=== PATIENT | female | born 1995 | race Two or more races ===

== ENCOUNTER 2017-03-12 13:38 | Inpatient (IN) | payer OTHER ==
[2017-03-12 14:06] VITALS: BMI 32.5
[2017-03-12] MEDS ORDERED: DIPHTH,PERTUSS(ACELL),TET 0.5 ML DISP.SYRIN IM ONE (14:26)
[2017-03-12] MEDS ORDERED: SODIUM CHLORIDE 1,000 ML IV STA (14:27)
--- NOTE | 2017-03-12 14:35 | PDOC ---
History of Present Illness <Piero Beltre - Last Filed: 03/12/17 18:05> - General History Source: Patient Exam Limitations: No Limitations - History of Present Illness Initial Comments: 03/12/17 14:30 21-year-old female presents to the ED with complaints of right foot redness swelling and pain since yesterday. 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 Patient states chills and states is up-to-date on vaccinations but unsure of last tetanus. Patient denies history of immunosuppression including diabetes Timing/Duration: getting worse Associated Symptoms: reports: fever/chills <Mariangel Preciado - Last Filed: 03/12/17 19:01> - General Chief Complaint: Puncture Wound Stated Complaint: LT FOOT PAIN Time Seen by Provider: 03/12/17 14:03 Past History <Piero Beltre - Last Filed: 03/12/17 18:05> - Travel Traveled outside of the country in the last 30 days: No - Past Medical History CVA: No COPD: No DVT: No Dementia: No - Reproductive History LMP Normal: Yes Is Patient Now?: No - Immunization History Immunization Up to Date: Yes - Suicide/Smoking/Psychosocial Hx Smoking History: Never smoked Have you smoked in the past 12 months: No Information on smoking cessation initiated: No Drug/Substance Use Hx: Yes (Marijuana) Substance Use Type: None Patient Lives Alone: No Lives with/in: parents <Mariangel Preciado - Last Filed: 03/12/17 19:01> - Past Medical History Allergies/Adverse Reactions: Allergies Allergy/AdvReac Type Severity Reaction Status Date / Time No Known Allergies Allergy Verified 03/12/17 14:00 Home Medications: Ambulatory Orders NK [No Known Home Medication] 03/12/17 Review of Systems - Review of Systems Able to Perform ROS?: No Constitutional: Yes: Chills Musculoskeletal: Yes: Muscle Pain (rt foot) Integumentary: Yes: Bruising, Erythema, Lumps Endocrine: No: Symptoms Reported <Mariangel Preciado - Last Filed: 03/12/17 19:01> *Physical Exam - Vital Signs Last Vital Signs Temp Pulse Resp BP Pulse Ox 99.5 F 98 H 16 113/66 97 03/12/17 14:02 03/12/17 14:02 03/12/17 14:02 03/12/17 14:02 03/12/17 14:02 <Piero Beltre - Last Filed: 03/12/17 18:05> - Vital Signs Last Vital Signs Temp Pulse Resp BP Pulse Ox 99.5 F 98 H 16 113/66 97 03/12/17 14:02 03/12/17 14:02 03/12/17 14:02 03/12/17 14:02 03/12/17 14:02 - Physical Exam General Appearance: Yes: Nourished, Appropriately Dressed. No: Apparent Distress HEENT: positive: EOMI. negative: Pale Conjunctivae Vascular Pulses: Dorsalis-Pedis (R): 2+ Extremity: positive: Normal Capillary Refill, Normal Range of Motion, Tender ( to sole of rt foot. Noted raised 1 cm circular hematoma to center of erythema. Area warm to touch and with noted streaking to the medial aspect of rt sole) Integumentary: positive: Erythema, Swelling Neurologic: positive: Motor Strength 5/5 (ambulatory with limp) <Mariangel Preciado - Last Filed: 03/12/17 19:01> ED Treatment Course - LABORATORY CBC & Chemistry Diagram: 03/12/17 15:23 03/12/17 15:23 - ADDITIONAL ORDERS Additional order review: Laboratory Results 03/12/17 03/12/17 03/12/17 15:23 15:23 15:23 PT with INR INR Sodium 137 Potassium 4.0 Chloride 103 Carbon Dioxide 28 Anion Gap 6 L BUN 10 Creatinine 0.9 Creat Clearance w eGFR > 60 Random Glucose 67 L Lactic Acid 2.0 Calcium 8.9 Total Bilirubin 0.6 AST 17 ALT 23 Alkaline Phosphatase 89 Total Protein 7.9 Albumin 3.8 Urine Color Urine Appearance Urine pH Ur Specific [place] Urine Protein Urine Glucose (UA) Urine Ketones Urine Blood Urine Nitrite Urine Bilirubin Urine Urobilinogen Urine WBC (Auto) Urine RBC (Auto) Ur Epithelial Cells Urine HCG, Qual Negative 03/12/17 03/12/17 15:23 15:23 PT with INR 14.20 H INR 1.26 H Sodium Potassium Chloride Carbon Dioxide Anion Gap BUN Creatinine Creat Clearance w eGFR Random Glucose Lactic Acid Calcium Total Bilirubin AST ALT Alkaline Phosphatase Total Protein Albumin Urine Color Haylee Urine Appearance Slcloudy Urine pH 5.0 Ur Specific [place] 1.021 Urine Protein 1+ H Urine Glucose (UA) Negative Urine Ketones 1+ H Urine Blood 3+ H Urine Nitrite Positive Urine Bilirubin Negative Urine Urobilinogen Negative Urine WBC (Auto) 33 Urine RBC (Auto) 12 Ur Epithelial Cells Rare Urine HCG, Qual 03/12/17 15:23 RBC 4.28 MCV 91.1 MCHC 32.9 RDW 13.3 MPV 9.2 Neutrophils % 79.6 Lymphocytes % 10.9 Monocytes % 9.2 Eosinophils % 0.1 Basophils % 0.2 - Medications Given in the ED: ED Medications Discontinued Medications Generic Name Dose Route Start Last Admin Trade Name Freq PRN Reason Stop Dose Admin Diphtheria/Tetanus/Acell Pertussis 0.5 ml 03/12/17 14:26 03/12/17 16:12 Boostrix - IM 03/12/17 14:27 0.5 ml .ONCE ONE Administration Sodium Chloride 1,000 mls @ 1,000 mls/hr 03/12/17 14:27 03/12/17 16:12 Normal Saline - IV 03/12/17 15:26 1,000 mls/hr ASDIR STA Administration <Piero Beltre - Last Filed: 03/12/17 18:05> - LABORATORY CBC & Chemistry Diagram: 03/12/17 15:23 03/12/17 15:23 - RADIOLOGY Radiology Studies Ordered: Category Date Time Status CHEST X-RAY PORTABLE* [RAD] Stat Radiology 03/12/17 14:27 Ordered FOOT-RIGHT [RAD] Stat Radiology 03/12/17 14:26 Ordered <Mariangel Preciado - Last Filed: 03/12/17 19:01> Medical Decision Making - Medical Decision Making 03/12/17 14:36 Pt with tender hematoma of unknown source to sole of right foot since yesterday. Pt with noted elevated hr, low grade temp, edema, erythema, and clinical suspicious for sepsis. Pt had streaking to the medial aspect of sole extending to base of malleolus Xray and tdap ordered along with septic w/u. 03/12/17 14:43 Patient will go to the main ED for further management <Mariangel Preciado - Last Filed: 03/12/17 19:01> *DC/Admit/Observation/Transfer <Piero Beltre - Last Filed: 03/12/17 18:05> <Mariangel Preciado - Last Filed: 03/12/17 19:01> Diagnosis at time of Disposition: Cellulitis
[2017-03-12 15:42] LABS: BASO % 0.2 % (0-2.0); EOS % 0.1 % (0-4.5); HEMATOCRIT 38.9 % (32.4-45.2); HEMOGLOBIN 12.8 GM/dL (10.7-15.3); LYMPH % 10.9 % (8-40); MCHC 32.9 g/dl (32.0-36.0); MEAN CELL VOLUME 91.1 fl (80-96); MEAN PLT VOLUME 9.2 fl (7.5-11.1); MONO % 9.2 % (3.8-10.2); NEUT % 79.6 % (42.8-82.8); PLATELET COUNT 238 K/MM3 (134-434); RBC 4.28 M/mm3 (3.60-5.2); RDW 13.3 % (11.6-15.6); WHITE BLOOD COUNT 11.2 K/mm3 (4.0-10.0)
[2017-03-12 15:48] LABS: URINE APPEARANCE SLCLOUDY; URINE BILIRUBIN NEGATIVE (NEGATIVE); URINE BLOOD 3+ (NEGATIVE); URINE COLOR AMBER; URINE GLUCOSE (UA) NEGATIVE (NEGATIVE); URINE KETONE 1+ (NEGATIVE); URINE NITRITE POSITIVE (NEGATIVE); URINE UROBILINOGEN NEGATIVE mg/dL (0.2-1.0)
[2017-03-12 15:51] LABS: URINE LEUK ESTERASE 1+ (NEGATIVE); URINE PROTEIN 1+ (NEGATIVE)
[2017-03-12 15:57] LABS: EPI CELLS RARE /HPF (FEW)
[2017-03-12 16:03] LABS: INR 1.26 (0.82-1.09); PROTHROMBIN TIME (PATIENT) 14.2 SEC (9.98-11.88)
[2017-03-12 16:11] LABS: ALBUMIN 3.8 g/dl (3.4-5.0); ANION GAP 6 (8-16); BILIRUBIN,TOTAL 0.6 mg/dL (0.2-1.0); BLOOD UREA NITROGEN 10 mg/dL (7-18); CALCIUM 8.9 mg/dL (8.5-10.1); CHLORIDE 103 mmol/L (98-107); CO2 28 mmol/L (21-32); CREATININE 0.9 mg/dL (0.55-1.02); GLUCOSE,RANDOM 67 mg/dL (74-106); SGOT/AST 17 U/L (15-37); SGPT/ALT 23 U/L (12-78); SODIUM 137 mmol/L (136-145); TOT PROT 7.9 g/dl (6.4-8.2)
[2017-03-12 16:12] LABS: ALK PHOS 89 U/L (45-117)
[2017-03-12] MEDS ORDERED: PIPERACILLIN/TAZOB 3.375 GM/50 ML PRE-DOCKED IVPB ONE (18:18)
--- NOTE | 2017-03-12 18:18 | PDOC ---
*Physical Exam - Vital Signs Last Vital Signs Temp Pulse Resp BP Pulse Ox 99.5 F 98 H 16 113/66 97 03/12/17 14:02 03/12/17 14:02 03/12/17 14:02 03/12/17 14:02 03/12/17 14:02 <Piero Beltre - Last Filed: 03/12/17 19:16> - Vital Signs Last Vital Signs Temp Pulse Resp BP Pulse Ox 100.0 F H 86 20 119/76 100 03/12/17 19:12 03/12/17 19:12 03/12/17 19:12 03/12/17 19:12 03/12/17 19:12 - Physical Exam Comments: 03/12/17 20:56 Vitals: Triage vital signs reviewed. General Appearance: No acute distress, well nourished, well developed. Head: Atraumatic, normocephalic. Eyes: Pupils equal round reactive, extraocular movement intact. Neck: Supple. No nuchal rigidity. Chest Wall: Nontender. Cardiac: Regular rate and rhythm. No murmurs, no rubs, no gallops. Lungs: Clear to auscultation bilaterally, good air movement bilaterally. Extremities: Base of right foot, 10 cm x 10 cm cellulitis of the medial aspect of the foot extending to the medial malleolus with lymphangitic spread. At the center of the cellulitis, there is a small hematoma which appears to be the nidus of infection. No fluctuance or evidence of abscess, neurovascularly intact. Full range of motion to all extremities, no cyanosis, no clubbing. Skin: Warm and dry, no rashes or lesions, no petechiae. Neuro: AOX3; Cranial Nerves 2-12 grossly intact. Strength intact to all extremities. Sensation intact to all extremities. Psych: Normal mood, normal affect. <Evy Aponte - Last Filed: 03/12/17 20:57> ED Treatment Course - LABORATORY CBC & Chemistry Diagram: 03/12/17 15:23 03/12/17 15:23 - ADDITIONAL ORDERS Additional order review: Laboratory Results 03/12/17 03/12/17 03/12/17 15:23 15:23 15:23 PT with INR INR Sodium 137 Potassium 4.0 Chloride 103 Carbon Dioxide 28 Anion Gap 6 L BUN 10 Creatinine 0.9 Creat Clearance w eGFR > 60 Random Glucose 67 L Lactic Acid 2.0 Calcium 8.9 Total Bilirubin 0.6 AST 17 ALT 23 Alkaline Phosphatase 89 Total Protein 7.9 Albumin 3.8 Urine Color Urine Appearance Urine pH Ur Specific [place] Urine Protein Urine Glucose (UA) Urine Ketones Urine Blood Urine Nitrite Urine Bilirubin Urine Urobilinogen Urine WBC (Auto) Urine RBC (Auto) Ur Epithelial Cells Urine HCG, Qual Negative 03/12/17 03/12/17 15:23 15:23 PT with INR 14.20 H INR 1.26 H Sodium Potassium Chloride Carbon Dioxide Anion Gap BUN Creatinine Creat Clearance w eGFR Random Glucose Lactic Acid Calcium Total Bilirubin AST ALT Alkaline Phosphatase Total Protein Albumin Urine Color Haylee Urine Appearance Slcloudy Urine pH 5.0 Ur Specific [place] 1.021 Urine Protein 1+ H Urine Glucose (UA) Negative Urine Ketones 1+ H Urine Blood 3+ H Urine Nitrite Positive Urine Bilirubin Negative Urine Urobilinogen Negative Urine WBC (Auto) 33 Urine RBC (Auto) 12 Ur Epithelial Cells Rare Urine HCG, Qual 03/12/17 15:23 RBC 4.28 MCV 91.1 MCHC 32.9 RDW 13.3 MPV 9.2 Neutrophils % 79.6 Lymphocytes % 10.9 Monocytes % 9.2 Eosinophils % 0.1 Basophils % 0.2 - Medications Given in the ED: ED Medications Discontinued Medications Generic Name Dose Route Start Last Admin Trade Name [place] PRN Reason Stop Dose Admin Diphtheria/Tetanus/Acell Pertussis 0.5 ml 03/12/17 14:26 03/12/17 16:12 Boostrix - IM 03/12/17 14:27 0.5 ml .ONCE ONE Administration Sodium Chloride 1,000 mls @ 1,000 mls/hr 03/12/17 14:27 03/12/17 16:12 Normal Saline - IV 03/12/17 15:26 1,000 mls/hr ASDIR STA Administration <Piero Beltre - Last Filed: 03/12/17 19:16> - LABORATORY CBC & Chemistry Diagram: 03/12/17 15:23 03/12/17 15:23 - ADDITIONAL ORDERS Additional order review: Laboratory Results 03/12/17 03/12/17 03/12/17 15:23 15:23 15:23 PT with INR INR Sodium 137 Potassium 4.0 Chloride 103 Carbon Dioxide 28 Anion Gap 6 L BUN 10 Creatinine 0.9 Creat Clearance w eGFR > 60 Random Glucose 67 L Lactic Acid 2.0 Calcium 8.9 Total Bilirubin 0.6 AST 17 ALT 23 Alkaline Phosphatase 89 Total Protein 7.9 Albumin 3.8 Urine Color Urine Appearance Urine pH Ur Specific [place] Urine Protein Urine Glucose (UA) Urine Ketones Urine Blood Urine Nitrite Urine Bilirubin Urine Urobilinogen Urine WBC (Auto) Urine RBC (Auto) Ur Epithelial Cells Urine HCG, Qual Negative 03/12/17 03/12/17 15:23 15:23 PT with INR 14.20 H INR 1.26 H Sodium Potassium Chloride Carbon Dioxide Anion Gap BUN Creatinine Creat Clearance w eGFR Random Glucose Lactic Acid Calcium Total Bilirubin AST ALT Alkaline Phosphatase Total Protein Albumin Urine Color Haylee Urine Appearance Slcloudy Urine pH 5.0 Ur Specific [place] 1.021 Urine Protein 1+ H Urine Glucose (UA) Negative Urine Ketones 1+ H Urine Blood 3+ H Urine Nitrite Positive Urine Bilirubin Negative Urine Urobilinogen Negative Urine WBC (Auto) 33 Urine RBC (Auto) 12 Ur Epithelial Cells Rare Urine HCG, Qual 03/12/17 15:23 RBC 4.28 MCV 91.1 MCHC 32.9 RDW 13.3 MPV 9.2 Neutrophils % 79.6 Lymphocytes % 10.9 Monocytes % 9.2 Eosinophils % 0.1 Basophils % 0.2 - Medications Given in the ED: ED Medications Discontinued Medications Generic Name Dose Route Start Last Admin Trade Name Freq PRN Reason Stop Dose Admin Acetaminophen 1,000 mg 03/12/17 18:43 03/12/17 19:09 Tylenol - PO 03/12/17 18:44 975 mg ONCE ONE Administration Diphtheria/Tetanus/Acell Pertussis 0.5 ml 03/12/17 14:26 03/12/17 16:12 Boostrix - IM 03/12/17 14:27 0.5 ml .ONCE ONE Administration Sodium Chloride 1,000 mls @ 1,000 mls/hr 03/12/17 14:27 03/12/17 16:12 Normal Saline - IV 03/12/17 15:26 1,000 mls/hr ASDIR STA Administration Piperacillin Sod/Tazobactam Sod 3.375 gm 03/12/17 18:18 03/12/17 18:42 Zosyn 3.375gm Ivpb (Pre-Docked) IVPB 03/12/17 18:19 3.375 gm NOW ONE Administration Protocol <Evy Aponte - Last Filed: 03/12/17 20:57> Progress Note - Progress Note Progress Note: The patient is a 21 year old female, with no significant past medical history, who presents to the emergency department with right foot swelling, redness and pain since yesterday. The patient reports that the pain began as discomfort and has progressed with increased swelling and redness since last night, prompting her to come to the ED for evaluation. The patient reports that it has been difficulty to ambulate since last night secondary to the pain. The patient does not specifically remember stepping on anything but reports that she works at [employer] and could have easily stepped on something at work without noticing. The patient denies fever, chills, nausea or vomiting. Allergies: None reported. Past Surgical History: None reported. Social History: Non-smoker. Denies alcohol or drug use. <Evy Aponte - Last Filed: 03/12/17 20:57> Medical Decision Making - Medical Decision Making 03/12/17 18:17 Questionable puncture wound with cellulitis and lymphangitic spread. We'll treat with Cefazolin and and observe overnight for further management. <Piero Beltre - Last Filed: 03/12/17 19:16> *DC/Admit/Observation/Transfer - Discharge Dispostion Admit: Yes <Piero Beltre - Last Filed: 03/12/17 19:16> - Attestations Scribe Attestion: 03/12/17 19:49 Documentation prepared by Evy Aponte, acting as registered medical assistant for Piero Beltre MD. <Evy Aponte - Last Filed: 03/12/17 20:57> Diagnosis at time of Disposition: Cellulitis Qualifiers: Site of cellulitis: other site Qualified Code(s): L03.818 - Cellulitis of other sites
[2017-03-12] MEDS ORDERED: PIPERACILLIN/TAZOB 3.375 GM 3.375 GM/50 ML BAG IVPB ONE (18:27)
[2017-03-12] MEDS ORDERED: ACETAMINOPHEN 500 MG TABLET (FP) PO ONE (18:43)
[2017-03-12] MEDS ORDERED: ACETAMINOPHEN 325 MG TABLET (FP) ONE (19:02)
[2017-03-12] MEDS ORDERED: IBUPROFEN 400 MG TABLET (FP) PO PRN (20:08)
--- NOTE | 2017-03-12 20:24 | HP ---
CHIEF COMPLAINT: Right Foot Pain, Swelling and Redness PCP: HISTORY OF PRESENT ILLNESS: This is a 21 y/o young woman with no past medical history. Who presents to the ED with pain, swelling and redness to her R- foot x 1 day. Patient reports while working at [employer], she felt a discomforting sensation to her right mid plantar, but kept working. She reports being able to ambulate, then noticed while at home after resting her foot was swollen, red and she was unable to bear weight. This am she reports the swelling, redness and pain was worse. Patient denies fever, chills, cough, SOB, CP, AP, N/V/D, constipation. ER course was notable for: (1) WBC 11.2 (2) UA- UTI +Nitrate, +3 Blood, +1 protein, 33 WBC (3) T Max 100.0 Recent Travel: None PAST MEDICAL HISTORY: None PAST SURGICAL HISTORY: None Social History: Smoking: None Alcohol: None Drugs: None Lives with family, employed at [employer] Family History: Non-Contributory Allergies No Known Allergies Allergy (Verified 03/12/17 14:00) HOME MEDICATIONS: Home Medications Medication Instructions Recorded NK [No Known Home Medication] 03/12/17 REVIEW OF SYSTEMS CONSTITUTIONAL: Absent: fever, chills, diaphoresis, generalized weakness, malaise, loss of appetite, weight change HEENT: Absent: rhinorrhea, nasal congestion, throat pain, throat swelling, difficulty swallowing, mouth swelling, ear pain, eye pain, visual changes CARDIOVASCULAR: Absent: chest pain, syncope, palpitations, irregular heart rate, lightheadedness , peripheral edema RESPIRATORY: Absent: cough, shortness of breath, dyspnea with exertion, orthopnea, wheezing, stridor, hemoptysis GASTROINTESTINAL: Absent: abdominal pain, abdominal distension, nausea, vomiting, diarrhea, constipation, melena, hematochezia GENITOURINARY: Absent: dysuria, frequency, urgency, hesitancy, hematuria, flank pain, genital pain MUSCULOSKELETAL: right foot pain and swelling Absent: myalgia, arthralgia, joint swelling, back pain, neck pain SKIN: redness to right foot Absent: rash, itching, pallor HEMATOLOGIC/IMMUNOLOGIC: Absent: easy bleeding, easy bruising, lymphadenopathy, frequent infections ENDOCRINE: Absent: unexplained weight gain, unexplained weight loss, heat intolerance, cold intolerance NEUROLOGIC: Absent: headache, focal weakness or paresthesias, dizziness, unsteady gait, seizure, mental status changes, bladder or bowel incontinence PSYCHIATRIC: Absent: anxiety, depression, suicidal or homicidal ideation, hallucinations. PHYSICAL EXAMINATION Vital Signs - 24 hr 03/12/17 03/12/17 14:02 19:12 Temperature 99.5 F 100.0 F H Pulse Rate 98 H Pulse Rate [ 86 Radial] Respiratory 16 20 Rate Blood Pressure 113/66 Blood Pressure 119/76 [Left Arm] O2 Sat by Pulse 97 100 Oximetry (%) GENERAL: Awake, alert, and fully oriented, in no acute distress. HEAD: Normal with no signs of trauma. EYES: Pupils equal, round and reactive to light, extraocular movements intact, sclera anicteric, conjunctiva clear. No lid lag. EARS, NOSE, THROAT: Ears normal, nares patent, oropharynx clear without exudates. Moist mucous membranes. NECK: Normal range of motion, supple without lymphadenopathy, JVD, or masses. LUNGS: Breath sounds equal, clear to auscultation bilaterally. No wheezes, and no crackles. No accessory muscle use. HEART: Regular rate and rhythm, normal S1 and S2 without murmur, rub or gallop. ABDOMEN: Soft, nontender, not distended, normoactive bowel sounds, no guarding, no rebound, no masses. No hepatomegaly or splenomegaly. MUSCULOSKELETAL: Normal range of motion at all joints. No bony deformities or tenderness. No CVA tenderness. UPPER EXTREMITIES: 2+ pulses, warm, well-perfused. No cyanosis. No clubbing. No peripheral edema. LOWER EXTREMITIES: 2+ pulses, warm, well-perfused. No calf tenderness. No peripheral edema. NEUROLOGICAL: Cranial nerves II-XII intact. Normal speech. Gait not observed. PSYCHIATRIC: Cooperative. Good eye contact. Appropriate mood and affect. SKIN: +hematoma mid plantar, erythema, induration mid plantar to right heel. Warm, dry, normal turgor, normal capillary refill. Laboratory Results - last 24 hr 03/12/17 03/12/17 03/12/17 15:23 15:23 15:23 WBC 11.2 H RBC 4.28 Hgb 12.8 Hct 38.9 MCV 91.1 MCH 30.0 MCHC 32.9 RDW 13.3 Plt Count 238 MPV 9.2 Neutrophils % 79.6 Lymphocytes % 10.9 Monocytes % 9.2 Eosinophils % 0.1 Basophils % 0.2 PT with INR 14.20 H INR 1.26 H Sodium Potassium Chloride Carbon Dioxide Anion Gap BUN Creatinine Creat Clearance w eGFR Random Glucose Lactic Acid Calcium Total Bilirubin AST ALT Alkaline Phosphatase Total Protein Albumin Urine Color Haylee Urine Appearance Slcloudy Urine pH 5.0 Ur Specific [place] 1.021 Urine Protein 1+ H Urine Glucose (UA) Negative Urine Ketones 1+ H Urine Blood 3+ H Urine Nitrite Positive Urine Bilirubin Negative Urine Urobilinogen Negative Urine WBC (Auto) 33 Urine RBC (Auto) 12 Ur Epithelial Cells Rare Urine HCG, Qual 03/12/17 03/12/17 03/12/17 15:23 15:23 15:23 WBC RBC Hgb Hct MCV MCH MCHC RDW Plt Count MPV Neutrophils % Lymphocytes % Monocytes % Eosinophils % Basophils % PT with INR INR Sodium 137 Potassium 4.0 Chloride 103 Carbon Dioxide 28 Anion Gap 6 L BUN 10 Creatinine 0.9 Creat Clearance w eGFR > 60 Random Glucose 67 L Lactic Acid 2.0 Calcium 8.9 Total Bilirubin 0.6 AST 17 ALT 23 Alkaline Phosphatase 89 Total Protein 7.9 Albumin 3.8 Urine Color Urine Appearance Urine pH Ur Specific [place] Urine Protein Urine Glucose (UA) Urine Ketones Urine Blood Urine Nitrite Urine Bilirubin Urine Urobilinogen Urine WBC (Auto) Urine RBC (Auto) Ur Epithelial Cells Urine HCG, Qual Negative ASSESSMENT/PLAN: This is a 21 y/o young woman with no PMHx. Placed in Observation for Cellulitis of the Right Foot, UTI. Problem List - Problem (1) Cellulitis Assessment/Plan: - Likely secondary to a puncture wound - Blood Cultures-pending - +Leukocytosis - Zosyn given in ED, will continue - Motrin prn - Appreciate ID Consult - Monitor CBC - Elevate extremity - Monitor vitals Code(s): L03.90 - CELLULITIS, UNSPECIFIED Qualifiers: Site of cellulitis: other site Qualified Code(s): L03.818 - Cellulitis of other sites (2) UTI (urinary tract infection) Assessment/Plan: - UA- +nitrate, +1 protein, +3 blood - Urine Culture- pending - Patient is current asymptomatic, currently on Zosyn for Cellulitis - Monitor vitals Code(s): N39.0 - URINARY TRACT INFECTION, SITE NOT SPECIFIED (3) DVT prophylaxis Assessment/Plan: - OOB Code(s): [id number] - Visit type - Emergency Visit Emergency Visit: Yes ED Registration Date: 03/12/17 Care time: The patient presented to the Emergency Department on the above date and was hospitalized for further evaluation of their emergent condition. - New Patient This patient is new to me today: Yes Date on this admission: 03/12/17 - Critical Care Critical Care patient: No
[2017-03-13] MEDS ORDERED: PIPERACILLIN/TAZOB 3.375 GM 3.375 GM in DEXTROSE 5%-WATER - 100 ML IVPB ONE (02:00)
[2017-03-13] MEDS ORDERED: PIPERACIL/TAZOB 3.375 GM 3.375 GM/50 ML PREMIX IVPB SCH (02:00)
[2017-03-13 08:14] LABS: BASO % 0.2 % (0-2.0); HEMATOCRIT 34.9 % (32.4-45.2); HEMOGLOBIN 11.4 GM/dL (10.7-15.3); LYMPH % 29.2 % (8-40); MCH 30.2 pg (25.7-33.7); MCHC 32.7 g/dl (32.0-36.0); MEAN CELL VOLUME 92.3 fl (80-96); MEAN PLT VOLUME 9.1 fl (7.5-11.1); MONO % 13.8 % (3.8-10.2); NEUT % 55.8 % (42.8-82.8); PLATELET COUNT 187 K/MM3 (134-434); RBC 3.78 M/mm3 (3.60-5.2); RDW 13.4 % (11.6-15.6); WHITE BLOOD COUNT 6.4 K/mm3 (4.0-10.0)
[2017-03-13] MEDS ORDERED: VANCOMYCIN 1,500 MG in DEXTROSE 5%-WATER - 500 ML IVPB ONE (08:18)
--- NOTE | 2017-03-13 08:21 | PN ---
Physical Exam: SUBJECTIVE: Patient seen and examined at bedside. and child present. Has pain in right foot. OBJECTIVE: Vital Signs Period Temp Pulse Resp BP Sys/Allen Pulse Ox Last 24 Hr 97.8 F-100.0 F 73-98 16-20 107-119/64-76 97-100 GENERAL: The patient is awake, alert, and fully oriented, in no acute distress. LUNGS: Breath sounds equal, clear to auscultation bilaterally, no wheezes, no crackles, no accessory muscle use. HEART: Regular rate and rhythm, S1, S2 without murmur, rub or gallop. ABDOMEN: Soft, nontender, nondistended, normoactive bowel sounds, no guarding, no rebound EXTREMITIES: 2+ pulses, warm, well-perfused, no edema. NEUROLOGICAL: Cranial nerves II through XII grossly intact. Normal speech, gait not observed. SKIN: +bluish hematoma mid plantar, ++tenderness Laboratory Results - last 24 hr 03/12/17 03/12/17 03/12/17 15:23 15:23 15:23 WBC 11.2 H RBC 4.28 Hgb 12.8 Hct 38.9 MCV 91.1 MCH 30.0 MCHC 32.9 RDW 13.3 Plt Count 238 MPV 9.2 Neutrophils % 79.6 Lymphocytes % 10.9 Monocytes % 9.2 Eosinophils % 0.1 Basophils % 0.2 PT with INR 14.20 H INR 1.26 H Sodium Potassium Chloride Carbon Dioxide Anion Gap BUN Creatinine Creat Clearance w eGFR Random Glucose Lactic Acid Calcium Total Bilirubin AST ALT Alkaline Phosphatase Total Protein Albumin Urine Color Haylee Urine Appearance Slcloudy Urine pH 5.0 Ur Specific [place] 1.021 Urine Protein 1+ H Urine Glucose (UA) Negative Urine Ketones 1+ H Urine Blood 3+ H Urine Nitrite Positive Urine Bilirubin Negative Urine Urobilinogen Negative Ur Leukocyte Esterase Trace H Urine WBC (Auto) 33 Urine RBC (Auto) 12 Ur Epithelial Cells Rare Urine HCG, Qual 03/12/17 03/12/17 03/12/17 15:23 15:23 15:23 WBC RBC Hgb Hct MCV MCH MCHC RDW Plt Count MPV Neutrophils % Lymphocytes % Monocytes % Eosinophils % Basophils % PT with INR INR Sodium 137 Potassium 4.0 Chloride 103 Carbon Dioxide 28 Anion Gap 6 L BUN 10 Creatinine 0.9 Creat Clearance w eGFR > 60 Random Glucose 67 L Lactic Acid 2.0 Calcium 8.9 Total Bilirubin 0.6 AST 17 ALT 23 Alkaline Phosphatase 89 Total Protein 7.9 Albumin 3.8 Urine Color Urine Appearance Urine pH Ur Specific [place] Urine Protein Urine Glucose (UA) Urine Ketones Urine Blood Urine Nitrite Urine Bilirubin Urine Urobilinogen Ur Leukocyte Esterase Urine WBC (Auto) Urine RBC (Auto) Ur Epithelial Cells Urine HCG, Qual Negative Active Medications Generic Name Dose Route Start Last Admin Trade Name Freq PRN Reason Stop Dose Admin Vancomycin HCl 1,500 mg/ 500 mls @ 250 mls/hr 03/13/17 08:18 Dextrose IVPB 03/13/17 10:17 ONCE ONE Protocol Ibuprofen 400 mg 03/12/17 20:08 03/12/17 23:19 Motrin - PO 400 mg Q6H PRN Administration FEVER OR PAIN Piperacillin/Tazobactam/Dextrose 3.375 gm 03/13/17 02:00 Zosyn 3.375gm Ivpb (Premix) IVPB Q8H-IV MARV ASSESSMENT/PLAN: 21 year-old female with no significant PMH admitted for cellulitis right foot. Cellulitis right foot --likely secondary to a puncture wound --afebrile, mild leukocytosis --continue Zosyn UTI --pyuria --on Zosyn DVT prophylaxis: oob, ambulation Visit type - Emergency Visit Emergency Visit: Yes ED Registration Date: 03/12/17 Care time: The patient presented to the Emergency Department on the above date and was hospitalized for further evaluation of their emergent condition. - New Patient This patient is new to me today: Yes Date on this admission: 03/25/17 - Critical Care Critical Care patient: No
[2017-03-13 08:33] LABS: ANION GAP 6 (8-16); BLOOD UREA NITROGEN 10 mg/dL (7-18); CALCIUM 8.2 mg/dL (8.5-10.1); CHLORIDE 106 mmol/L (98-107); CO2 26 mmol/L (21-32); CREATININE 0.7 mg/dL (0.55-1.02); GLUCOSE,RANDOM 92 mg/dL (74-106); POTASSIUM 3.9 mmol/L (3.5-5.1); SODIUM 138 mmol/L (136-145)
--- NOTE | 2017-03-13 11:49 | CON.ID ---
Consult - History of Present Illness History of Present Illness: This is a 21 y.o. female with no significant PMH presenting with c/o Rt foot pain/erythema and warmth that began 1 day [employer]. Pt states that she was standing at work and first noticed pain and redness in bottom of her right foot at about 1 pm and it became progressively worse and she could no longer stand. Pain persisted throughout the night and was associated with some swelling and warmth as well as subjective fevers. Pt denies any trauma at the site. Pt also with c/ o urinary frequency for the past 2 wks but without dysuria, hematuria, lower abd or flank pain. - History Source History Provided By: Patient Limitations to Obtaining History: No Limitations - Past Medical History Renal/: Yes: UTI ...: No - Past Surgical History Past Surgical History: Yes: None - Alcohol/Substance Use Hx Alcohol Use: No History of Substance Use: reports: None - Smoking History Smoking history: Never smoked Have you smoked in the past 12 months: No - Social History History of Recent Travel: No Home Medications - Allergies Allergies/Adverse Reactions: Allergies Allergy/AdvReac Type Severity Reaction Status Date / Time No Known Allergies Allergy Verified 03/12/17 14:00 - Home Medications Home Medications: Ambulatory Orders NK [No Known Home Medication] 03/12/17 Family Disease History - Family Disease History Family Disease History: Diabetes: Mother Review of Systems - Review of Systems Constitutional: reports: Fever (subjective) Eyes: reports: No Symptoms HENT: reports: No Symptoms Neck: reports: No Symptoms Cardiovascular: reports: No Symptoms Respiratory: reports: No Symptoms Gastrointestinal: reports: No Symptoms Genitourinary: reports: Frequency Breasts: reports: No Symptoms Reported Musculoskeletal: reports: No Symptoms Integumentary: reports: Erythema (Rt plantar foot tenderness/erythema) Neurological: reports: No Symptoms Endocrine: reports: No Symptoms Psychiatric: reports: No Symptoms Physical Exam Vital Signs: Vital Signs Temperature 97.8 F 03/13/17 06:00 Pulse Rate 73 03/13/17 06:00 Respiratory Rate 20 03/13/17 06:00 Blood Pressure 117/68 03/13/17 06:00 O2 Sat by Pulse Oximetry (%) 100 03/12/17 22:52 Constitutional: Yes: No Distress, Calm Neck: Yes: Supple Cardiovascular: Yes: Regular Rate and Rhythm Respiratory: Yes: Regular Gastrointestinal: Yes: Normal Bowel Sounds, Soft Renal/: Yes: WNL Breast(s): Yes: WNL Extremities: Yes: Erythema (Rt lateral foot/plantar erythema/warmth/tenderness, mild edema, small hematoma) Neurological: Yes: Alert, Oriented Labs: CBC, BMP 03/13/17 06:50 03/13/17 06:50 Imaging - Results X-ray: Report Reviewed Problem List - Problems (1) Cellulitis Code(s): L03.90 - CELLULITIS, UNSPECIFIED Qualifiers: Site of cellulitis: other site Qualified Code(s): L03.818 - Cellulitis of other sites Assessment/Plan 21 y.o. female with Rt plantar foot pain/erythema/mild edema, urinary frequency , low grade fever, mild leukocytosis on admission Rt foot cellulitis UTI - cont IV antibiotics for now - switch to p.o. if continues to improve - send urine culture
[2017-03-13] MEDS: PIPERACILLIN/TAZOB 3.375 GM 3.375 GM in DEXTROSE 5%-WATER - 100 ML IVPB SCH ×2 (13:43→19:24)
[2017-03-13] MEDS: VANCOMYCIN 1,250 MG in DEXTROSE 5%-WATER - 250 ML IVPB SCH (13:44)
[2017-03-13] MEDS ORDERED: PT OWN MED DRAWER 7, Y5N ONE (17:53)
[2017-03-14] MEDS: VANCOMYCIN 1,250 MG in DEXTROSE 5%-WATER - 250 ML IVPB SCH (00:37)
[2017-03-14] MEDS: PIPERACILLIN/TAZOB 3.375 GM 3.375 GM in DEXTROSE 5%-WATER - 100 ML IVPB SCH ×3 (02:52→17:13)
--- NOTE | 2017-03-14 10:32 | PN ---
Progress Note, Physician History of Present Illness: patient starting to feel better leg still with pain - Current Medication List Current Medications: Active Medications Piperacillin Sod/Tazobactam (Sod 3.375 gm/ Dextrose) 100 mls @ 200 mls/hr IVPB Q8H-IV MARV Last Admin: 03/14/17 10:29 Dose: 200 mls/hr Vancomycin HCl 1,250 mg/ (Dextrose) 250 mls @ 125 mls/hr IVPB BID@0000,1200 MARV Last Admin: 03/14/17 00:37 Dose: 125 mls/hr Ibuprofen (Motrin -) 400 mg PO Q6H PRN PRN Reason: FEVER OR PAIN Last Admin: 03/12/17 23:19 Dose: 400 mg - Objective Vital Signs: Vital Signs Temperature 98.8 F 03/14/17 07:45 Pulse Rate 90 03/14/17 07:45 Respiratory Rate 20 03/14/17 07:45 Blood Pressure 130/63 03/14/17 07:45 O2 Sat by Pulse Oximetry (%) 99 03/14/17 02:00 Constitutional: Yes: Calm, Mild Distress Cardiovascular: Yes: Regular Rate and Rhythm Respiratory: Yes: Regular, CTA Bilaterally Gastrointestinal: Yes: Normal Bowel Sounds, Soft Musculoskeletal: Yes: WNL Extremities: Yes: Other Neurological: Yes: Alert, Oriented Labs: CBC, BMP 03/13/17 06:50 03/13/17 06:50 INR, PTT INR 1.26 (0.82-1.09) H 03/12/17 15:23 Assessment/Plan Problem List - Problems (1) Cellulitis Code(s): L03.90 - CELLULITIS, UNSPECIFIED Qualifiers: Site of cellulitis: other site Qualified Code(s): L03.818 - Cellulitis of other sites 2 abscess of the foot plan after looking at the leg patient has dveloped abscess of the foot needs drainage of that spot surgery should get involved continue abx will stop vanco
[2017-03-14] MEDS ORDERED: ACETAMINOPHEN 325 MG TABLET (FP) PO PRN (11:50)
--- NOTE | 2017-03-14 11:57 | PN ---
Physical Exam: SUBJECTIVE: Patient seen and examined. She denies fever chill, she says the redness is improved OBJECTIVE: Vital Signs Period Temp Pulse Resp BP Sys/Allen Pulse Ox Last 24 Hr 98.3 F-98.8 F 78-90 16-20 102-152/51-89 99 PE Neuro: alert, awake, cn 2-12intact Pulm: CTAB CV: s1 s2 rrr no mrg Abd: s nt nd + bs Ext: R plantar foot lateral side above heel, discolored yost area of fluctuance , erythema improved, tenderness to palpation Active Medications Generic Name Dose Route Start Last Admin Trade Name Freq PRN Reason Stop Dose Admin Piperacillin Sod/Tazobactam 100 mls @ 200 mls/hr 03/13/17 12:00 03/14/17 10: 29 Sod 3.375 gm/ Dextrose IVPB 200 mls/hr Q8H-IV MARV Administration Ibuprofen 400 mg 03/12/17 20:08 03/12/17 23:19 Motrin - PO 400 mg Q6H PRN Administration FEVER OR PAIN Microbiology 03/12/17 15:01 Urine Culture - Preliminary Urine - Urine Clean Catch Lactose Fermenting Neg Bacilli 03/12/17 15:23 Blood Culture - Preliminary Blood - Peripheral Venous NO GROWTH OBTAINED AFTER 24 HOURS, INCUBATION TO CONTINUE FOR 4 DAYS. Assessment: 21 year old female with no PMHx. Placed in Observation for Cellulitis of the Right Foot, UTI. Plan: 1. Cellulitis R planter foot - Likely secondary to a puncture wound, however no foreign body noted, no gas - Leukocytosis improved - For I&D tomorrow, surgery/podiatry to discuss, keep NPO for OR - BC NGTD - Stop vanco - Continue zosyn - Stop motrin, tylenolo prn pain 2. UTI - Urine cx LFNB - Abx as above 3. DVT prophylaxis - OOB Visit type - Emergency Visit Emergency Visit: Yes ED Registration Date: 03/12/17 Care time: The patient presented to the Emergency Department on the above date and was hospitalized for further evaluation of their emergent condition. - New Patient This patient is new to me today: Yes Date on this admission: 03/14/17 - Critical Care Critical Care patient: No
[2017-03-15] MEDS: PIPERACILLIN/TAZOB 3.375 GM 3.375 GM in DEXTROSE 5%-WATER - 100 ML IVPB SCH ×4 (02:50→17:59)
[2017-03-15 08:16] LABS: BASO % 0.2 % (0-2.0); HEMATOCRIT 36.3 % (32.4-45.2); HEMOGLOBIN 11.8 GM/dL (10.7-15.3); LYMPH % 49.2 % (8-40); MCH 29.9 pg (25.7-33.7); MCHC 32.6 g/dl (32.0-36.0); MEAN CELL VOLUME 91.6 fl (80-96); MEAN PLT VOLUME 8.9 fl (7.5-11.1); MONO % 7.1 % (3.8-10.2); NEUT % 41.5 % (42.8-82.8); PLATELET COUNT 249 K/MM3 (134-434); RBC 3.97 M/mm3 (3.60-5.2); RDW 13.2 % (11.6-15.6); WHITE BLOOD COUNT 7.4 K/mm3 (4.0-10.0)
--- NOTE | 2017-03-15 08:39 | PN ---
Physical Exam: SUBJECTIVE: Patient seen and examined at bedside. Pt remains NPO for OR today. OBJECTIVE: Vital Signs Period Temp Pulse Resp BP Sys/Allen Pulse Ox Last 24 Hr 97.8 F-98.3 F 69-93 16-18 103-142/54-78 100-100 GENERAL: The patient is awake, alert, and fully oriented, in no acute distress. LUNGS: Breath sounds equal, clear to auscultation bilaterally, no wheezes, no crackles, no accessory muscle use. HEART: Regular rate and rhythm, S1, S2 without murmur, rub or gallop. EXTREMITIES: 2+ pulses, warm, well-perfused, no edema. 2cm circular fluctuant discolored lesion noted to lateral plantar surface of the right foot. TTP. SKIN: Warm, dry, normal turgor. 2cm circular fluctuant discolored lesion noted to lateral plantar surface of the right foot. TTP. Laboratory Results - last 24 hr 03/15/17 06:35 WBC 7.4 RBC 3.97 Hgb 11.8 Hct 36.3 MCV 91.6 MCH 29.9 MCHC 32.6 RDW 13.2 Plt Count 249 D MPV 8.9 Neutrophils % 41.5 L D Lymphocytes % 49.2 H D Monocytes % 7.1 Eosinophils % 2.0 D Basophils % 0.2 Active Medications Generic Name Dose Route Start Last Admin Trade Name Freq PRN Reason Stop Dose Admin Acetaminophen 650 mg 03/14/17 11:50 Tylenol - PO Q4H PRN FEVER OR PAIN Piperacillin Sod/Tazobactam 100 mls @ 200 mls/hr 03/13/17 12:00 03/15/17 02: 50 Sod 3.375 gm/ Dextrose IVPB 200 mls/hr Q8H-IV MARV Administration Microbiology 03/12/17 15:23 Blood - Peripheral Venous Blood Culture - Preliminary NO GROWTH OBTAINED AFTER 48 HOURS, INCUBATION TO CONTINUE FOR 3 DAYS. 03/12/17 15:01 Urine - Urine Clean Catch Urine Culture - Preliminary Lactose Fermenting Neg Bacilli ASSESSMENT/PLAN: A: 21 year old female with no PMHx. Placed in Observation for Cellulitis of the Right Foot, UTI. P: 1. Cellulitis right planter foot - Likely secondary to a puncture wound, no foreign body noted - Leukocytosis resolved - For I&D today, keep NPO for OR - Stop vanco - Continue zosyn - tylenol prn pain 2. UTI - Urine cx LFNB - Abx as above 3. F/E/N - NPO for OR 4. DVT prophylaxis - OOB Dispo- OR today. Visit type - Emergency Visit Emergency Visit: Yes ED Registration Date: 03/12/17 Care time: The patient presented to the Emergency Department on the above date and was hospitalized for further evaluation of their emergent condition. - New Patient This patient is new to me today: Yes Date on this admission: 03/15/17 - Critical Care Critical Care patient: No
--- NOTE | 2017-03-15 09:41 | CONSULT ---
- Consultation REQUESTING PROVIDER: Danish JO CONSULT REQUEST: We have been asked to surgically evaluate this patient for ( specify). PCP:Andre Yoo NP HISTORY OF PRESENT ILLNESS: Pain and swelling of the right foot w/o known trauma since 03/12/17; NOC; she was admitted for IVAB's and xray show knows evidence of radioopaque foreign body. PMHx: PSHx: Home Medications Medication Instructions Recorded NK [No Known Home Medication] 03/12/17 Allergies Allergy/AdvReac Type Severity Reaction Status Date / Time No Known Allergies Allergy Verified 03/12/17 14:00 REVIEW OF SYSTEMS: CONSTITUTIONAL: Absent: fever, chills, diaphoresis, generalized weakness, malaise, loss of appetite, weight change CARDIOVASCULAR: Absent: chest pain, syncope, palpitations, irregular heart rate, lightheadedness , peripheral edema RESPIRATORY: Absent: cough, shortness of breath, dyspnea with exertion, wheezing, stridor, hemoptysis GASTROINTESTINAL: Absent: abdominal pain, abdominal distension, nausea, vomiting, diarrhea, constipation, melena, hematochezia GENITOURINARY: Absent: dysuria, frequency, urgency, hesitancy, hematuria, flank pain, genital pain MUSCULOSKELETAL: Absent: myalgia, arthralgia, joint swelling, back pain, neck pain SKIN: Absent: rash, itching, pallor HEMATOLOGIC/IMMUNOLOGIC: Absent: easy bleeding, easy bruising, lymphadenopathy NEUROLOGIC: Absent: headache, focal weakness, paresthesias, dizziness, unsteady gait, seizure, mental status changes, bladder or bowel incontinence PSYCHIATRIC: Absent: anxiety, depression, suicidal or homicidal ideation, hallucinations. PHYSICAL EXAM: GENERAL: Awake, alert, and fully oriented, in no acute distress. HEAD: Normal with no signs of trauma. EYES: sclera anicteric, conjunctiva clear. NECK: Normal ROM, supple without lymphadenopathy, JVD, or masses. ABDOMEN: Soft, nontender, not distended, normoactive bowel sounds, no guarding, no rebound, no masses. No organomegaly. MUSCULOSKELETAL: Normal ROM at all joints. No bony deformities or tenderness. No CVA tenderness. UPPER EXTREMITIES: 2+ pulses, warm, well-perfused. No cyanosis. Cap refill <2 seconds. No peripheral edema. LOWER EXTREMITIES: 2+ pulses, warm, well-perfused. No calf tenderness. No peripheral edema. NEUROLOGICAL: Normal speech, gait not observed. PSYCH: Cooperative. Good eye contact. Appropriate mood and affect. SKIN: Warm, dry, normal turgor, no rashes or lesions noted. right foot lateral aspect w/ soft tissue mass c/w abscess/necrotic tissue. Vital Signs Temperature 98.2 F 03/15/17 05:00 Pulse Rate 69 03/15/17 05:00 Respiratory Rate 18 03/15/17 05:00 Blood Pressure 105/54 03/15/17 05:00 O2 Sat by Pulse Oximetry (%) 100 03/15/17 06:00 Lab Results WBC 7.4 K/mm3 (4.0-10.0) 03/15/17 06:35 RBC 3.97 M/mm3 (3.60-5.2) 03/15/17 06:35 Hgb 11.8 GM/dL (10.7-15.3) 03/15/17 06:35 Hct 36.3 % (32.4-45.2) 03/15/17 06:35 MCV 91.6 fl (80-96) 03/15/17 06:35 MCHC 32.6 g/dl (32.0-36.0) 03/15/17 06:35 RDW 13.2 % (11.6-15.6) 03/15/17 06:35 Plt Count 249 K/MM3 (134-434) D 03/15/17 06:35 Sodium 138 mmol/L (136-145) 03/13/17 06:50 Potassium 3.9 mmol/L (3.5-5.1) 03/13/17 06:50 Chloride 106 mmol/L (98-107) 03/13/17 06:50 Carbon Dioxide 26 mmol/L (21-32) 03/13/17 06:50 Anion Gap 6 (8-16) L 03/13/17 06:50 BUN 10 mg/dL (7-18) 03/13/17 06:50 Creatinine 0.7 mg/dL (0.55-1.02) D 03/13/17 06:50 Random Glucose 92 mg/dL (74-106) D 03/13/17 06:50 Calcium 8.2 mg/dL (8.5-10.1) L 03/13/17 06:50 INR 1.26 (0.82-1.09) H 03/12/17 15:23 IMP: soft tissue infection right foot PLAN: I and D ;r/b/t/a's d/w patient; she understands the wound will remain open to heal by secondary intention.. Obie Walsh MD FACS Visit type - Case Type Case Type: ED Admission - Emergency Emergency Visit: Yes ED Registration Date: 03/12/17 Care time: The patient presented to the Emergency Department on the above date and was hospitalized for further evaluation of their emergent condition. - New patient This patient is new to me today: Yes Date on this admission: 03/15/17 - Critical Care Critical Care patient: No
[2017-03-15] MEDS ORDERED: PROPOFOL 20 ML ONE ×3 (09:42→10:01)
[2017-03-15] MEDS ORDERED: MIDAZOLAM HCL 2 MG/2 ML SINGLE DOSE VIAL ONE (09:42)
[2017-03-15] MEDS ORDERED: LIDOCAINE HCL 1%, 10 MG/ML (20ML VIAL) INF ONE (10:07)
[2017-03-15] MEDS ORDERED: BUPIVACAINE HCL/PF 0.5% (5MG/ML) 10 ML VIAL IJ ONE (10:07)
[2017-03-15] MEDS ORDERED: ONDANSETRON 4 MG/2 ML VIAL IVPUSH PRN (10:38)
[2017-03-15] MEDS ORDERED: ACETAMINOPHEN 325 MG TABLET (FP) PO PRN (10:49)
--- NOTE | 2017-03-15 10:54 | OP ---
Operative Note - Note: Operative Date: 03/15/17 Pre-Operative Diagnosis: Right foot abscess Operation: Incision and drainage of right foot abscess Post-Operative Diagnosis: Same as Pre-op Surgeon: Obie Walsh Coremaker Supervisor: Haylee Fuentes Anesthesiologist/DIRECTOR ATHLETIC: Mayur Vasquez Anesthesia: General Estimated Blood Loss (mls): 5 Fluid Volume Replaced (mls): 400 Operative Report Dictated: Yes
--- NOTE | 2017-03-15 10:55 | SURG ---
Surgery Food Processing Scientist Note Food Processing Scientist: Haylee Fuentes PA-C Date of Service: 03/15/17 Diagnosis: Right foot abscess Procedure: incision and drainage of right foot abscess I was present for the entirety of the operative procedure. For further detail, please refer to operative report. Visit type - Case Type Case Type: ED Admission - Emergency Emergency Visit: Yes ED Registration Date: 03/12/17 Care time: The patient presented to the Emergency Department on the above date and was hospitalized for further evaluation of their emergent condition. - New patient This patient is new to me today: Yes Date on this admission: 03/15/17
[2017-03-15] MEDS ORDERED: LACTATED RINGERS SOLUTION 1000 ML INFUS.BAG IV SCH (11:00)
[2017-03-15] MEDS: LACTATED RINGERS SOLUTION 1,000 ML IV SCH (11:15)
[2017-03-15] MEDS: oxyCODONE HCL 5 MG TABLET PO PRN ×2 (13:49→22:21)
--- NOTE | 2017-03-15 14:35 | PN ---
Progress Note, Physician History of Present Illness: doing well no complaints post op drainage of abscess - Current Medication List Current Medications: Active Medications Acetaminophen (Tylenol -) 650 mg PO Q4H PRN PRN Reason: FEVER OR PAIN Last Admin: 03/15/17 13:48 Dose: 650 mg Fentanyl (Sublimaze Injection -) 50 mcg IVPUSH [id number] PRN PRN Reason: PAIN Piperacillin Sod/Tazobactam (Sod 3.375 gm/ Dextrose) 100 mls @ 200 mls/hr IVPB Q8H-IV MARV Stop: 03/16/17 17:59 Lactated Ringer's (Lactated Ringers Solution) 1,000 mls @ 75 mls/hr IV ASDIR MARV Last Admin: 03/15/17 11:15 Dose: 0 mls Ondansetron HCl (Zofran Injection) 4 mg IVPUSH Q6H PRN PRN Reason: NAUSEA AND/OR VOMITING Oxycodone HCl (Roxicodone -) 5 mg PO Q4H PRN PRN Reason: PAIN Last Admin: 03/15/17 13:49 Dose: 5 mg - Objective Vital Signs: Vital Signs Temperature 97.6 F 03/15/17 12:24 Pulse Rate 55 L 03/15/17 12:24 Respiratory Rate 18 03/15/17 12:24 Blood Pressure 105/69 03/15/17 12:24 O2 Sat by Pulse Oximetry (%) 97 03/15/17 12:24 Constitutional: Yes: No Distress, Calm Cardiovascular: Yes: Regular Rate and Rhythm Respiratory: Yes: Regular, CTA Bilaterally Gastrointestinal: Yes: Normal Bowel Sounds, Soft Musculoskeletal: Yes: WNL Extremities: Yes: Other Wound/Incision: Yes: Dressing Dry and Intact Neurological: Yes: Alert, Oriented Psychiatric: Yes: Alert, Oriented Labs: CBC, BMP 03/15/17 06:35 03/13/17 06:50 INR, PTT INR 1.26 (0.82-1.09) H 03/12/17 15:23 Assessment/Plan Problem List - Problems (1) Cellulitis Code(s): L03.90 - CELLULITIS, UNSPECIFIED Qualifiers: Site of cellulitis: other site Qualified Code(s): L03.818 - Cellulitis of other sites 2 abscess of the foot 3 UTI plan post op patient doing well await for cx report rest as per primary team wound care
[2017-03-16] MEDS: LACTATED RINGERS SOLUTION 1,000 ML IV SCH (00:56)
[2017-03-16] MEDS: PIPERACILLIN/TAZOB 3.375 GM 3.375 GM in DEXTROSE 5%-WATER - 100 ML IVPB SCH ×2 (03:14→11:27)
[2017-03-16 09:06] LABS: ANION GAP 8 (8-16); BLOOD UREA NITROGEN 7 mg/dL (7-18); CALCIUM 8.6 mg/dL (8.5-10.1); CHLORIDE 106 mmol/L (98-107); CO2 27 mmol/L (21-32); CREATININE 0.8 mg/dL (0.55-1.02); GLUCOSE,RANDOM 75 mg/dL (74-106); POTASSIUM 4.3 mmol/L (3.5-5.1); SODIUM 141 mmol/L (136-145)
[2017-03-16 09:17] LABS: BASO % 0.4 % (0-2.0); EOS % 2.1 % (0-4.5); HEMATOCRIT 34.6 % (32.4-45.2); HEMOGLOBIN 11.1 GM/dL (10.7-15.3); LYMPH % 52.6 % (8-40); MCH 29.5 pg (25.7-33.7); MCHC 32.1 g/dl (32.0-36.0); MEAN CELL VOLUME 91.9 fl (80-96); MONO % 6.4 % (3.8-10.2); NEUT % 38.5 % (42.8-82.8); PLATELET COUNT 246 K/MM3 (134-434); RBC 3.76 M/mm3 (3.60-5.2); RDW 12.9 % (11.6-15.6); WHITE BLOOD COUNT 6.6 K/mm3 (4.0-10.0)
[2017-03-16] MEDS: oxyCODONE HCL 5 MG TABLET PO PRN (09:46)
--- NOTE | 2017-03-16 10:24 | PN ---
Progress Note (short form) - Note Progress Note: POD #1 Alert. Resting comfortably. C/o mild incisional tenderness. Adequate pain control via PRN meds. AVSS. Afebrile. CBC, BMP 03/16/ 07:10 12/ 07:10 Gen: alert. nad RLE: packing removed on rounds. Wound irrigated. Repacked with 3" of 1/4" iodoform packing. Problem List - Problems (1) Abscess of right foot Assessment/Plan: POD #1 s/p I&D right foot abscess Dressing changed on rounds Daily dressing changes ordered IV abx per ID No further surgical intervention Cont medical mangement Reconsult PRN On behalf of Dr. Walsh, thank you for the opportunity to participate in your patient's care. Code(s): L02.611 - CUTANEOUS ABSCESS OF RIGHT FOOT
--- NOTE | 2017-03-16 15:14 | PN ---
Progress Note, Physician History of Present Illness: patient doing well dressing changed patient feels well now - Current Medication List Current Medications: Active Medications Acetaminophen (Tylenol -) 650 mg PO Q4H PRN PRN Reason: FEVER OR PAIN Last Admin: 03/15/17 13:48 Dose: 650 mg Fentanyl (Sublimaze Injection -) 50 mcg IVPUSH [id number] PRN PRN Reason: PAIN Piperacillin Sod/Tazobactam (Sod 3.375 gm/ Dextrose) 100 mls @ 200 mls/hr IVPB Q8H-IV MARV Stop: 03/16/17 17:59 Last Admin: 03/16/17 11:27 Dose: 200 mls/hr Lactated Ringer's (Lactated Ringers Solution) 1,000 mls @ 75 mls/hr IV ASDIR MARV Last Admin: 03/16/17 00:56 Dose: 75 mls/hr Ondansetron HCl (Zofran Injection) 4 mg IVPUSH Q6H PRN PRN Reason: NAUSEA AND/OR VOMITING Oxycodone HCl (Roxicodone -) 5 mg PO Q4H PRN PRN Reason: PAIN Last Admin: 03/16/17 09:46 Dose: 5 mg - Objective Vital Signs: Vital Signs Temperature 98.2 F 03/16/17 08:10 Pulse Rate 75 03/16/17 08:10 Respiratory Rate 18 03/16/17 08:10 Blood Pressure 116/72 03/16/17 08:10 O2 Sat by Pulse Oximetry (%) 100 03/15/17 22:00 Constitutional: Yes: No Distress, Calm Cardiovascular: Yes: Regular Rate and Rhythm Respiratory: Yes: Regular, CTA Bilaterally Gastrointestinal: Yes: Normal Bowel Sounds, Soft Musculoskeletal: Yes: WNL Extremities: Yes: Other Wound/Incision: Yes: Dressing Dry and Intact Neurological: Yes: Alert, Oriented Psychiatric: Yes: Alert Labs: CBC, BMP 03/16/17 07:10 03/16/17 07:10 INR, PTT INR 1.26 (0.82-1.09) H 03/12/17 15:23 Assessment/Plan Problem List - Problems (1) Cellulitis Code(s): L03.90 - CELLULITIS, UNSPECIFIED Qualifiers: Site of cellulitis: other site Qualified Code(s): L03.818 - Cellulitis of other sites 2 abscess of the foot 3 UTI plan post op patient doing well patient can be switched to oral augmentin 875mg bid for another 7 days
[2017-03-16 15:44] VITALS: BP 120/60; PULSE 72; TEMP 98.5
--- NOTE | 2017-03-16 16:53 | DS ---
Physical Exam: SUBJECTIVE: Patient seen and examined OBJECTIVE: Vital Signs Period Temp Pulse Resp BP Sys/Allen Pulse Ox Last 24 Hr 98.0 F-98.5 F 65-75 18-20 113-120/60-72 100 PHYSICAL EXAM GENERAL: The patient is awake, alert, and fully oriented, in no acute distress. LUNGS: Breath sounds equal, clear to auscultation bilaterally, no wheezes, no crackles, no accessory muscle use. HEART: Regular rate and rhythm, S1, S2 without murmur, rub or gallop. EXTREMITIES: 2+ pulses, warm, well-perfused, no edema. Surgical incision to right plantar surface c/d/i. SKIN: Warm, dry, normal turgor. Surgical incision to right plantar surface c/d/ i. LABS Laboratory Results - last 24 hr 03/16/17 03/16/17 07:10 07:10 WBC 6.6 RBC 3.76 Hgb 11.1 Hct 34.6 MCV 91.9 MCH 29.5 MCHC 32.1 RDW 12.9 Plt Count 246 MPV 9.0 Neutrophils % 38.5 L Lymphocytes % 52.6 H Monocytes % 6.4 Eosinophils % 2.1 Basophils % 0.4 Sodium 141 Potassium 4.3 Chloride 106 Carbon Dioxide 27 Anion Gap 8 BUN 7 D Creatinine 0.8 Random Glucose 75 Calcium 8.6 HOSPITAL COURSE: Date of Admission:03/12/17 Date of Discharge: 03/16/17 Minutes to complete discharge: 45 Discharge Summary Reason For Visit: CELLULITIS Current Active Problems Abscess of right foot (Acute) Cellulitis (Acute) DVT prophylaxis (Acute) Fever (Acute) UTI (urinary tract infection) (Acute) Hospital Course: This is a 21 y/o young woman with no past medical history. Who presents to the ED with pain, swelling and redness to her R- foot x 1 day. Patient reports while working at [employer], she felt a discomforting sensation to her right mid plantar, but kept working. She reports being able to ambulate, then noticed while at home after resting her foot was swollen, red and she was unable to bear weight. This am she reports the swelling, redness and pain was worse. Patient denies fever, chills, cough, SOB, CP, AP, N/V/D, constipation. 1. Cellulitis right planter foot - Likely secondary to a puncture wound, no foreign body noted - Leukocytosis resolved - I&D done 03/15 - vanco 1g (03/13-03/14) - Zosyn 3.375g q8h (03/12-03/16) - tylenol prn pain - transition to PO Augmentin bid x7 days on discharge 2. UTI - Urine cx LFNB - Zosyn as above Condition: Stable - Instructions Diet, Activity, Other Instructions: Dr. Walsh Discharge Instructions Dear LEXIE MARTIN, Post Operative Instructions Physical activity Resume your normal everyday activity as tolerated no heavy lifting or exercise until seen by your surgeon. You may walk unlimited amounts of and climb stairs. You may resume driving the car when you feel safe and comfortable behind the wheel. Wound care If you have a bandage, leave it on, and keep dry for 48 - 72 hours. You may shower 2 days after surgery but do not submerge the incision. do not apply ointments or lotions to area. Diet There are no dietary restrictions. Eat healthy, high-fiber foods. Drink 6 to 8 glasses of liquid each day. This will assist in keeping your bowels are regular. Pain management You may take Tylenol or acetaminophen or Ibuprofen (for example, Motrin, Advil etc.) Any pain prescription medication ordered should be taken as prescribed for moderate to severe pain. Call Dr. Walsh for any of the following: Severe pain not relieved by medication Fever of 101 or higher Excessive bleeding or drainage on dressing Inability to urinate Call the office at [phone] for a post operative appointment in 7 - 10 days. Referrals: Obie Walsh MD [Staff Physician] - Simba Brewer MD [Staff Physician] - Disposition: HOME - Home Medications Comprehensive Discharge Medication List: Ambulatory Orders NK [No Known Home Medication] 03/12/17 This patient is new to me today: No Emergency Visit: Yes ED Registration Date: 03/12/17 Care time: The patient presented to the Emergency Department on the above date and was hospitalized for further evaluation of their emergent condition. Critical Care patient: No - Discharge Referral Referred to [facility] Yes Physician Referral: Simba Goodwin MD ([facility])
--- NOTE | 2017-03-17 09:14 | OP ---
DATE OF OPERATION: 03/15/2017 PREOPERATIVE DIAGNOSIS: Soft tissue abscess, plantar aspect, right foot. POSTOPERATIVE DIAGNOSIS: Soft tissue abscess, plantar aspect, right foot. PROCEDURE: Incision and drainage, soft tissue abscess, plantar aspect, right foot. SURGEON: Obie Walsh MD ARCHITECTURAL DRAFTING INSTRUCTOR: Haylee Fuentes PA-C ANESTHESIA: Local with IV sedation. OPERATIVE FINDINGS: There was a soft tissue abscess of unknown origin on the lateral aspect of the plantar surface of the right foot. The rest of the findings were unremarkable. DESCRIPTION OF PROCEDURE: The patient was placed on the operating table in supine position, and after the patient was administered IV sedation, the right foot up to and including the ankle was prepped with Betadine and draped in a sterile fashion. A time-out was taken, and then, 1% Xylocaine and 0.5% Marcaine were injected into the area around the soft tissue abscess. Incision was made with a scalpel in a cruciate fashion, and purulent drainage drained and sent for culture and sensitivity. Irrigation was carried out, and hemostasis secured with electrocautery, and the wound was packed with 0.25-inch Iodoform gauze followed by dry sterile dressings. The procedure was terminated at this point, and the patient transferred to the post-anesthesia care unit in stable condition, awake and alert. ESTIMATED BLOOD LOSS: Minimal. DRAINS: None. SPECIMENS: Culture and sensitivity to Microbiology. I, Obie Walsh MD, was physically present in the operating room from the time the patient was placed on the operating table until she was transferred to the post-anesthesia care unit in my accompaniment. Obie Guillory MD /[id number] [facility]
== END 2017-03-16 17:47 | disposition home or self-care (01) | DRG 383 ==
LOC: JER 13:38 → JERFT 13:38 → OBSVTOIN 19:16 → JERBED 19:16 → J8W 22:40
PROVIDERS: ADMIT Hospitalist; ATTEND Nurse Practitioner Family
PROC: 0Y9M0ZX Drainage of Right Foot, Open Approach, Diagnostic (ICD-10-PCS; principal; 2017-03-15 11:30)
DX: L03.818 Cellulitis of other sites (principal); N39.0 Urinary tract infection, site not specified; S91.331A Puncture wound without foreign body, right foot, initial encounter; X58.XXXA Exposure to other specified factors, initial encounter; Y93.89 Activity, other specified; Y92.89 Other specified places as the place of occurrence of the external cause; D72.829 Elevated white blood cell count, unspecified
CPT/HCPCS: 36415; 71020-TC; 71260-TC; 73630-TC-RT; 80048; 80053; 81003; 81015; 83605; 84703; 85025; 85610; 87040; 87070; 87086; 87186; 87205; 90715; 94760; 99284-25

== ENCOUNTER 2017-11-06 01:33 | Emergency (ER) | payer OTHER ==
--- NOTE | 2017-11-06 02:04 | PDOC ---
History of Present Illness - General Chief Complaint: Hives Stated Complaint: ALLERGIC RX Time Seen by Provider: 11/06/17 02:04 Past History - Past Medical History Allergies/Adverse Reactions: Allergies Allergy/AdvReac Type Severity Reaction Status Date / Time No Known Allergies Allergy Verified 11/06/17 02:02 Home Medications: Ambulatory Orders Sulfacetamide 4 drop OU ASDIR 11/06/17 CVA: No COPD: No DVT: No Dementia: No - Immunization History Immunization Up to Date: Yes - Suicide/Smoking/Psychosocial Hx Smoking History: Never smoked Have you smoked in the past 12 months: No Hx Alcohol Use: No Drug/Substance Use Hx: Yes (Marijuana) Substance Use Type: None
[2017-11-06 02:06] VITALS: BP 129/75; PULSE 94; TEMP 98.7; BMI 32.4
--- NOTE | 2017-11-06 02:28 | PDOC ---
History of Present Illness - General Chief Complaint: Hives Stated Complaint: ALLERGIC RX Time Seen by Provider: 11/06/17 02:04 History Source: Patient Exam Limitations: No Limitations - History of Present Illness Initial Comments: 11/06/17 02:39 22-year-old female with no past medical history presents to the ER with her boyfriend complaining of a rash to her face. Patient states she was at work this evening when she started having an itch to her face which caused slight discomfort but denies fever, chills, facial pain, difficulty swallowing, chest pain, shortness of breath. Patient states she did not use new detergent, facial soaps, makeup, new medications or food. Patient states similar symptoms occurred 3 weeks ago when she was seen at the urgent care center/[facility] and was given Bleph 10 and Benadryl. Past History - Past Medical History Allergies/Adverse Reactions: Allergies Allergy/AdvReac Type Severity Reaction Status Date / Time No Known Allergies Allergy Verified 11/06/17 02:02 Home Medications: Ambulatory Orders Epinephrine [Epipen] 0.3 mg IJ PRN #1 auto.injct 11/06/17 Prednisone [Prednisone 50 MG TABLETS] 50 mg PO DAILY #4 tablet 11/06/17 Sulfacetamide 4 drop OU ASDIR 11/06/17 CVA: No COPD: No DVT: No Dementia: No - Immunization History Immunization Up to Date: Yes - Suicide/Smoking/Psychosocial Hx Smoking History: Never smoked Have you smoked in the past 12 months: No Hx Alcohol Use: No Drug/Substance Use Hx: Yes (Marijuana) Substance Use Type: None Review of Systems - Review of Systems Able to Perform ROS?: Yes Comments:: 11/06/17 02:38 CONSTITUTIONAL: Absent: fever, chills, diaphoresis, generalized weakness, malaise, loss of appetite HEENT: Absent: rhinorrhea, nasal congestion, throat pain, throat swelling, difficulty swallowing, mouth swelling, ear pain, eye pain, visual Changes CARDIOVASCULAR: Absent: chest pain, loss of consciousness, palpitations, irregular heart rate, peripheral edema RESPIRATORY: Absent: cough, shortness of breath, dyspnea with exertion, orthopnea, wheezing, stridor, hemoptysis GASTROINTESTINAL: Absent: abdominal pain, abdominal distension, nausea, vomiting, diarrhea, constipation, melena, hematochezia GENITOURINARY: Absent: dysuria, frequency, urgency, hesitancy, hematuria, flank pain, genital pain MUSCULOSKELETAL: Absent: myalgia, arthralgia, joint swelling SKIN: +rash to face Absent: pallor HEMATOLOGIC/IMMUNOLOGIC: Absent: easy bleeding, easy bruising, lymphadenopathy, frequent infections ENDOCRINE: Absent: unexplained weight gain, unexplained weight loss, heat intolerance, cold intolerance NEUROLOGIC: Absent: headache, focal weakness or paresthesias, dizziness, unsteady gait, seizure, mental status changes, bladder or bowel incontinence PSYCHIATRIC: Absent: anxiety, depression, suicidal or homicidal ideation, hallucinations. *Physical Exam - Vital Signs Last Vital Signs Temp Pulse Resp BP Pulse Ox 98.7 F 94 H 16 129/75 100 11/06/17 02:02 11/06/17 02:02 11/06/17 02:02 11/06/17 02:02 11/06/17 02:02 - Physical Exam Comments: 11/06/17 02:37 GENERAL: Well developed, well nourished. Awake and alert. No acute distress. HEENT: R: 20/20 L:20/20, B/L 20/20 Normocephalic, atraumatic. PERRLA, EOMI. No conjunctival pallor. Sclera are non- icteric. Moist mucous membranes. Oropharynx is clear. NECK: Supple. Full ROM. No JVD. Carotid pulses 2+ and symmetric, without bruits. No thyromegaly. No lymphadenopathy. CARDIOVASCULAR: Regular rate and rhythm. No murmurs, rubs, or gallops. Distal pulses are 2+ and symmetric. PULMONARY: No evidence of respiratory distress. Lungs clear to auscultation bilaterally. No wheezing, rales or rhonchi. ABDOMINAL: Soft. Non-tender. Non-distended. No rebound or guarding. No organomegaly. Normoactive bowel sounds. MUSCULOSKELETAL Normal range of motion at all joints. No bony deformities or tenderness. No CVA tenderness. EXTREMITIES: No cyanosis. No clubbing. No edema. No calf tenderness. SKIN: +Urticaria toB/L cheeks with upper eyelid swelling Warm and dry. Normal capillary refill. No jaundice. *DC/Admit/Observation/Transfer Diagnosis at time of Disposition: Urticaria - Discharge Dispostion Disposition: HOME Condition at time of disposition: Stable Decision to Admit order: No - Prescriptions Prescriptions: Epinephrine [Epipen] 0.3 mg IJ PRN #1 auto.injct Prednisone [Prednisone 50 MG TABLETS] 50 mg PO DAILY #4 tablet - Referrals Referrals: Andre Brown MD [Staff Physician] - - Patient Instructions Printed Discharge Instructions: DI for Hives Additional Instructions: Increase fluids Prednisone 50 mg daily for the next 4 days Benadryl 50 mg at bedtime/be sure not to operate heavy machinery or drive while taking Benadryl for it can cause drowsiness Zyrtec in the morning for itch Follow-up with the sewer pipe cleaner/Dr. Brown this week Return back to the ER for severe/persistent or worsening symptoms - Post Discharge Activity Forms/Work/School Notes: Back to Work
--- NOTE | 2017-11-06 02:31 | PDOC ---
*Physical Exam - Vital Signs Last Vital Signs Temp Pulse Resp BP Pulse Ox 98.7 F 94 H 16 129/75 100 11/06/17 02:02 11/06/17 02:02 11/06/17 02:02 11/06/17 02:02 11/06/17 02:02 Medical Decision Making - Medical Decision Making 11/06/17 02:30 Pt seen and evaluated by me and ELIAS Varela. Appears to have urticaria and allergic conjunctivitis. Benadryl and PO steroids. Will treat the conjunctivitis with polytrim as well. No changes in visual acuity. no evidence of anaphylaxis. however, pt will need referral to an body masker and optho *DC/Admit/Observation/Transfer Diagnosis at time of Disposition: Urticaria - Discharge Dispostion Disposition: HOME Condition at time of disposition: Stable - Prescriptions Prescriptions: Epinephrine [Epipen] 0.3 mg IJ PRN #1 auto.injct Prednisone [Prednisone 50 MG TABLETS] 50 mg PO DAILY #4 tablet - Referrals Referrals: Andre Brown MD [Staff Physician] - - Patient Instructions Printed Discharge Instructions: DI for Hives Additional Instructions: Increase fluids Prednisone 50 mg daily for the next 4 days Benadryl 50 mg at bedtime/be sure not to operate heavy machinery or drive while taking Benadryl for it can cause drowsiness Zyrtec in the morning for itch Follow-up with the body masker/Dr. Brown this week Return back to the ER for severe/persistent or worsening symptoms - Post Discharge Activity Forms/Work/School Notes: Back to Work
[2017-11-06] MEDS ORDERED: diphenhydrAMINE HCL 50 MG CAPSULE PO ONE (02:33)
[2017-11-06] MEDS ORDERED: predniSONE 20 MG TABLET (UD) ONE (02:47)
[2017-11-06] MEDS ORDERED: predniSONE 10 MG TABLET (UD) ONE (02:47)
[2017-11-06] MEDS ORDERED: diphenhydrAMINE HCL 25 MG CAPSULE (FP) PO ONE (02:49)
[2017-11-06] MEDS ORDERED: predniSONE 20 MG TABLET (UD) PO ONE (02:52)
[2017-11-06] MEDS ORDERED: predniSONE 20 MG TABLET (UD) PO SCH (10:00)
== END 2017-11-06 02:56 | disposition home or self-care (01) ==
LOC: JER 01:33
DX: R21 Rash and other nonspecific skin eruption (principal); T78.49XA Other allergy, initial encounter
CPT/HCPCS: 99281-25

== ENCOUNTER 2020-09-16 23:18 | Emergency (ER) | payer OTHER ==
[2020-09-16 23:27] VITALS: BP 122/71; PULSE 133; TEMP 99.3; BMI 26.6
[2020-09-17] MEDS ORDERED: LIDOCAINE HCL 1%, 10 MG/ML (50 mL VIAL) INF ONE (00:17)
[2020-09-17] MEDS ORDERED: LIDOCAINE HCL 1%, 10 MG/ML (20ML VIAL) ONE (00:18)
[2020-09-17] MEDS ORDERED: ACETAMINOPHEN 500 MG TABLET (FP) PO ONE (00:49)
[2020-09-17] MEDS ORDERED: ACETAMINOPHEN 325 MG TABLET (FP) ONE (00:58)
== END 2020-09-17 01:03 | disposition home or self-care (01) ==
LOC: JER 23:18
PROC: 0HQ1XZZ Repair Face Skin, External Approach (ICD-10-PCS; principal; 2020-09-16)
DX: S01.81XA Laceration without foreign body of other part of head, initial encounter (principal); S09.90XA Unspecified injury of head, initial encounter
CPT/HCPCS: 70450-TC; 70486-TC; 72125-TC; 99285-25

== ENCOUNTER 2022-03-17 23:08 | Emergency (ER) | payer OTHER ==
[2022-03-17 23:14] VITALS: BP 131/90; PULSE 83; RESP 17; TEMP 97.6; BMI 31.6
[2022-03-18] MEDS ORDERED: IBUPROFEN 400 MG TABLET (FP) PO ONE ×2 (02:20→02:34)
== END 2022-03-18 03:24 | disposition home or self-care (01) ==
LOC: JER 23:08
DX: S39.012A Strain of muscle, fascia and tendon of lower back, initial encounter (principal); S46.912A Strain of unspecified muscle, fascia and tendon at shoulder and upper arm level, left arm, initial encounter; V43.52XA Car driver injured in collision with other type car in traffic accident, initial encounter
CPT/HCPCS: 70450-TC; 72070-TC-FY; 72100-TC-FY; 72125-TC; 73060-TC-LT-FY; 73070-TC-LT-FY; 84703; 99285-25

== ENCOUNTER 2022-10-28 10:55 | Emergency (ER) | payer OTHER ==
[2022-10-28 11:06] VITALS: BP 111/74; PULSE 90; RESP 16; TEMP 98.1; BMI 36.6
[2022-10-28] MEDS ORDERED: SODIUM CHLORIDE 1,000 ML IV STA (12:08)
[2022-10-28] MEDS ORDERED: ACETAMINOPHEN 1000 MG/100 ML BAG IVPB ONE (12:09)
[2022-10-28] MEDS ORDERED: ACETAMINOPHEN INJECTION 100 ML IVPB ONE (12:23)
[2022-10-28 12:52] LABS: BASO % 0.4 % (0-2.0); EOS % 1.9 % (0-4.5); HEMATOCRIT 39.8 % (32.4-45.2); HEMOGLOBIN 13.5 GM/dL (10.7-15.3); LYMPH % 40.2 % (8-40); MCH 29.7 pg (25.7-33.7); MCHC 33.8 g/dl (32.0-36.0); MEAN CELL VOLUME 87.8 fl (80-96); MEAN PLT VOLUME 8.7 fl (7.5-11.1); MONO % 6.3 % (3.8-10.2); NEUT % 51.2 % (42.8-82.8); PLATELET COUNT 296 10^3/uL (134-434); RBC 4.53 M/mm3 (3.60-5.2); RDW 13.8 % (11.6-15.6); WHITE BLOOD COUNT 5.9 K/mm3 (4.0-10.0)
[2022-10-28 12:58] LABS: INR 1.03 (0.83-1.09); PROTHROMBIN TIME (PATIENT) 11.9 SEC (9.7-13.0)
[2022-10-28 13:01] LABS: ACTIVATED PTT 30.2 SECONDS (25.2-36.5)
[2022-10-28 13:02] LABS: POTASSIUM 4.1 mmol/L (3.5-5.1)
[2022-10-28 13:04] LABS: CALCIUM 9.2 mg/dL (8.5-10.1)
[2022-10-28 13:05] LABS: ALBUMIN 3.7 g/dl (3.4-5.0); BLOOD UREA NITROGEN 12.1 mg/dL (7-18); MAGNESIUM 2.1 mg/dL (1.8-2.4)
[2022-10-28 13:08] LABS: CREATININE 0.9 mg/dL (0.55-1.3)
[2022-10-28 13:09] LABS: BILIRUBIN,TOTAL 0.2 mg/dL (0.2-1); TOT PROT 7.5 g/dl (6.4-8.2)
== END 2022-10-28 14:43 | disposition home or self-care (01) ==
LOC: JER 10:55
PROC: 0HQ1XZZ Repair Face Skin, External Approach (ICD-10-PCS; principal; 2022-10-28)
PROC: 3E033NZ Introduction of Analgesics, Hypnotics, Sedatives into Peripheral Vein, Percutaneous Approach (ICD-10-PCS; 2022-10-28)
PROC: 3E0337Z Introduction of Electrolytic and Water Balance Substance into Peripheral Vein, Percutaneous Approach (ICD-10-PCS; 2022-10-28)
DX: S01.112A Laceration without foreign body of left eyelid and periocular area, initial encounter (principal); R51.9 Headache, unspecified; W19.XXXA Unspecified fall, initial encounter
CPT/HCPCS: 36415; 70450-TC; 70486-TC; 80053; 83735; 84703; 85025; 85610; 85730; 93005; 93010; 99285-25

== ENCOUNTER 2022-10-30 12:06 | Emergency (ER) | payer OTHER ==
[2022-10-30 12:12] VITALS: BP 109/69; PULSE 82; RESP 18; TEMP 98; BMI 33.3
== END 2022-10-30 13:06 | disposition home or self-care (01) ==
LOC: JERFT 12:06
DX: Z48.00 Encounter for change or removal of nonsurgical wound dressing (principal)
CPT/HCPCS: 99281-25

== ENCOUNTER 2022-11-02 13:57 | Emergency (ER) | payer OTHER ==
[2022-11-02 14:05] VITALS: BP 108/66; PULSE 75; RESP 20; TEMP 98.6; BMI 30.4
== END 2022-11-02 14:38 | disposition home or self-care (01) ==
LOC: JERFT 13:57
DX: Z48.02 Encounter for removal of sutures (principal)
CPT/HCPCS: 99281-25